=== PATIENT | female | born 1945 ===

== ENCOUNTER 2017-11-19 09:51 | Emergency (ER) | payer OTHER ==
[~2017-11-19] VITALS: Ht 165.1 cm; Wt 65.8 kg
[2017-11-19] MEDS ORDERED: CLONAZEPAM0.25 MG (10:32)
[2017-11-19] MEDS ORDERED: CANABIS MEDICINAL (10:32)
== END 2017-11-19 14:04 | disposition home or self-care (01) ==
LOC: ER 09:51
DX: S60.042A Contusion of left ring finger without damage to nail, initial encounter (principal); W18.09XA Striking against other object with subsequent fall, initial encounter; Y93.89 Activity, other specified; Y92.830 Public park as the place of occurrence of the external cause; Y99.8 Other external cause status